=== PATIENT | female | born 1990 | race Caucasian/White ===

== ENCOUNTER 2020-11-01 17:50 | Emergency (ER) | payer OTHER ==
[~2020-11-01] VITALS: Ht 172.7 cm; Wt 136.1 kg
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
[2020-11-01] MEDS ORDERED: NAPROSYN500 MG PO (18:56)
[2020-11-01 19:26] VITALS: BP 152/98
== END 2020-11-01 19:30 | disposition home or self-care (01) ==
LOC: ER 17:50
DX: S83.005A Unspecified dislocation of left patella, initial encounter (principal); W01.0XXA Fall on same level from slipping, tripping and stumbling without subsequent striking against object, initial encounter; Y93.89 Activity, other specified; Y92.89 Other specified places as the place of occurrence of the external cause; Y99.8 Other external cause status